=== PATIENT | female | born 1985 | race Caucasian/White ===

== ENCOUNTER 2018-02-03 08:02 | Emergency (ER) | payer SELFPAY ==
[2018-02-03] MEDS ORDERED: Ketorolac Tromethamine 60 MG/2 ML VIAL ONE (08:44)
[2018-02-03 08:52] LABS: Pregnancy Test - Urine (BHCG) Negative (Negative)
[2018-02-03 08:53] LABS: Pregu Control Background? CLEAR/WHITE (CLR/WHITE); Pregu Control Bar Appear? YES (CONTROL BAR)
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
== END 2018-02-03 09:30 | disposition home or self-care (01) ==
LOC: ERS 08:02
DX: T14.8XXA Other injury of unspecified body region, initial encounter (principal); J45.909 Unspecified asthma, uncomplicated; F17.210 Nicotine dependence, cigarettes, uncomplicated; Y04.2XXA Assault by strike against or bumped into by another person, initial encounter
CPT/HCPCS: 70450; 72125; 72128; 72131; 81025; 96372; J1885